=== PATIENT | female | born 1965 | race Two or more races ===

== ENCOUNTER 2023-02-14 08:31 | Emergency (ER) | payer OTHER ==
[~2023-02-14] VITALS: Ht 162.6 cm; Wt 65.0 kg
[2023-02-14 09:41] VITALS: BP 125/84; PULSE 81; RESP 18; TEMP 98.5; O2SAT 97
[2023-02-14] MEDS ORDERED: IBUP1TAB5 PO (09:54)
[2023-02-14] MEDS ORDERED: ACET500T58 PO (09:54)
== END 2023-02-14 09:54 | disposition home or self-care (01) ==
LOC: ER 08:31
DX: R51.9 Headache, unspecified (principal); W22.8XXA Striking against or struck by other objects, initial encounter; Y93.89 Activity, other specified; Y92.89 Other specified places as the place of occurrence of the external cause; Y99.8 Other external cause status